=== PATIENT | female | born 1945 | race Caucasian/White ===

== ENCOUNTER 2025-04-21 11:04 | Outpatient (CLI) | payer MEDICARE ==
[2025-04-21 14:05] LABS: Estimated GFR - POC 47.0
== END 2025-04-21 11:05 | disposition home or self-care (01) ==
LOC: CSHMRI 11:04
PROVIDERS: ATTEND Internal Medicine Gastroenterology
DX: Z80.0 Family history of malignant neoplasm of digestive organs (principal); Z86.0100 Personal history of colon polyps, unspecified; R63.4 Abnormal weight loss; K57.92 Diverticulitis of intestine, part unspecified, without perforation or abscess without bleeding; R93.3 Abnormal findings on diagnostic imaging of other parts of digestive tract; K86.2 Cyst of pancreas; N28.1 Cyst of kidney, acquired
CPT/HCPCS: 36415; 74183; 82565